=== PATIENT | female | born 1960 | race Caucasian/White ===

== ENCOUNTER 2018-08-11 11:45 | Outpatient (CLI) | payer OTHER ==
--- NOTE | 2018-08-23 11:14 | MMO ---
Bilateral MAMMO Bilat Screen [facility]. CLINICAL HISTORY: Patient is 58 years old and is seen for screening. The patient has no family history of breast cancer. The patient has no personal history of cancer. VIEWS: The views performed were: bilateral craniocaudal with tomosynthesis and bilateral mediolateral oblique with tomosynthesis. FILMS COMPARED: The present examination has been compared to prior imaging studies performed at [facility] [place] on 03/20/2014, 03/23/2016 and 08/03/2017. MAMMOGRAM FINDINGS: There are scattered fibroglandular densities. There are no suspicious masses, suspicious calcifications, or new areas of architectural distortion. IMPRESSION: THERE IS NO MAMMOGRAPHIC EVIDENCE OF MALIGNANCY. A ROUTINE FOLLOW-UP MAMMOGRAM IN 1 YEAR IS RECOMMENDED. THE RESULTS OF THIS EXAM WERE SENT TO THE PATIENT. ACR BI-RADS Category 1 - Negative MAMMOGRAPHY NOTE: 1. A negative mammogram report should not delay a biopsy if a dominant of clinically suspicious mass is present. 2. Approximately 10% to 15% of breast cancers are not detected by mammography. 3. Adenosis and dense breasts may obscure an underlying neoplasm.
== END 2018-08-11 11:46 | disposition home or self-care (01) ==
LOC: BICMAMMO 11:45
PROVIDERS: ATTEND Family Medicine
DX: Z12.31 Encounter for screening mammogram for malignant neoplasm of breast (principal)
CPT/HCPCS: 77063; 77067

== ENCOUNTER 2018-12-21 13:29 | Outpatient (CLI) | payer OTHER ==
--- NOTE | 2018-12-22 13:41 | CT ---
CT CORONARY CALCIUM SCORING NONCONTRAST: Date: 12-21-2018 History: 58-year-old female with elevated serum LDL cholesterol. FINDINGS: Visualized central lung hill demonstrate subtle small nonspecific region of ground glass opacity at the medial aspect of right lower lobe. No other pulmonary abnormality. No cardiomegaly. No pericardi al effusion. No pleural effusion. Calcium Score: There is only a single focal calcification. It is probably at the ramus intermedius, with score of 6. There is no calcification in the left main, LAD, LCX, RCA, or PDA. IMPRESSION: Total Agatston score of 6. Minimal identifiable plaque. Risk of coronary artery disease is very unlik berenice, less than 10%. POS: CET
== END 2018-12-21 13:30 | disposition home or self-care (01) ==
LOC: BICCT 13:29
PROVIDERS: ATTEND Family Medicine
DX: E78.00 Pure hypercholesterolemia, unspecified (principal)
CPT/HCPCS: 75571

== ENCOUNTER 2021-02-09 13:52 | Outpatient (CLI) | payer OTHER | END 2021-02-09 13:53 | disposition home or self-care (01) | LOC: BICMAMMO 13:52 | PROVIDERS: ATTEND Family Medicine | DX: Z12.31 Encounter for screening mammogram for malignant neoplasm of breast (principal) | CPT/HCPCS: 77063; 77067 ==

== ENCOUNTER 2023-01-19 09:24 | Outpatient (CLI) | payer BC | END 2023-01-19 09:25 | disposition home or self-care (01) | LOC: BICMAMMO 09:24 | PROVIDERS: ATTEND Obstetrics & Gynecology | DX: C50.412 Malignant neoplasm of upper-outer quadrant of left female breast (principal); N63.21 Unspecified lump in the left breast, upper outer quadrant; N63.12 Unspecified lump in the right breast, upper inner quadrant; N60.01 Solitary cyst of right breast | CPT/HCPCS: 19083; 77066; 88305; 88341; 88342; G0279 ==

== ENCOUNTER 2023-02-10 12:53 | Outpatient (CLI) | payer BC | END 2023-02-10 12:54 | disposition home or self-care (01) | LOC: BICMAMMO 12:53 | PROVIDERS: ATTEND Obstetrics & Gynecology | DX: Z13.820 Encounter for screening for osteoporosis (principal); M85.89 Other specified disorders of bone density and structure, multiple sites | CPT/HCPCS: 77080 ==